=== PATIENT | male | born 1965 | race Caucasian/White ===

== ENCOUNTER 2019-08-06 16:26 | Emergency (ER) | payer OTHER, BC ==
[~2019-08-06] VITALS: Ht 195.6 cm; Wt 136.1 kg
[2019-08-06] MEDS ORDERED: ASPIRIN EC325 M1 PO (16:42)
[2019-08-06] MEDS ORDERED: SOTALOL 120 MG120 M1 PO (16:43)
[2019-08-06] MEDS ORDERED: METFORMIN HCL500 M3 PO (16:43)
[2019-08-06] MEDS ORDERED: FLOMAX0.4 MG PO (16:43)
[2019-08-06] MEDS ORDERED: AMBIEN 10 MG TA10 MG PO (16:43)
[2019-08-06] MEDS ORDERED: ZESTRIL20 MG PO (16:43)
[2019-08-06] MEDS ORDERED: DIAZEPAM 10 MG10 M1 PO (16:44)
[2019-08-06] MEDS ORDERED: NORCO 5-325 TA1 EAC1 PO (17:07)
[2019-08-06 17:56] VITALS: BP 144/72
== END 2019-08-06 17:56 | disposition home or self-care (01) ==
LOC: M.ERS 16:26
DX: M25.562 Pain in left knee (principal); I10 Essential (primary) hypertension; E11.9 Type 2 diabetes mellitus without complications; I48.91 Unspecified atrial fibrillation

== ENCOUNTER 2021-09-27 17:43 | Inpatient (IN) | payer BC ==
[~2021-09-27] VITALS: Ht 193 cm; Wt 140.6 kg
[2021-09-27] VITALS (7 sets, daily range): BP systolic 83–218; BP diastolic 37–148
[~2021-09-27 17:43] MED LIST: AMBIEN 10 MG TA10 MG PO; ASPIRIN EC325 M1 PO; DIAZEPAM 10 MG10 M1 PO; FLOMAX0.4 MG PO; METFORMIN HCL500 M3 PO; NORCO 5-325 TA1 EAC1 PO; SOTALOL 120 MG120 M1 PO; ZESTRIL20 MG PO
[2021-09-27 18:08] LABS: ABSOLUTE BASOPHILS 0.1 thou/uL (0.0-0.2); ABSOLUTE EOSINOPHILS 0.8 thou/uL (0.0-0.7); ABSOLUTE LYMPHOCYTES 2.1 thou/uL (0.8-5.3); ABSOLUTE MONOCYTES 0.5 thou/uL (0.0-1.2); ABSOLUTE NEUTROPHILS 6.8 thou/uL (1.6-8.1); BASOPHILS 1.1 %; EOSINOPHILS 7.4 %; HEMATOCRIT 48.6 % (42.0-52.0); HEMOGLOBIN 16.4 gm/dL (14.0-18.0); LYMPHOCYTES 20.7 %; MCH 26.9 pg (26.0-34.0); MCHC 33.7 g/dL (28.0-37.0); MCV 79.9 fL (80.0-100.0); MPV 8.9 fl. (7.2-11.1); NUCLEATED RBCS 0 /100WBC; PLATELET COUNT* 217 thou/uL (150-400); POLYS 65.8 %; RBC 6.09 mil/uL (4.50-6.00); WBC 10.3 thou/uL (4.0-11.0)
[2021-09-27 18:12] LABS: CALCIUM 8.6 mg/dL (8.5-10.1); POTASSIUM 3.9 mmol/L (3.5-5.1)
[2021-09-27 18:24] LABS: ALBUMIN 4.2 g/dL (3.4-5.0); TOTAL PROTEIN 8.4 g/dL (6.4-8.2)
[2021-09-27 19:11] LABS: BE -1.9 mmol/L (-2 to +3)
[2021-09-27 19:14] LABS: PCO2 53.7 mmHg (35.0-45.0); PO2 185.4 mmHg (75.0-100.0); pH 7.295 (7.340-7.450)
[2021-09-27 22:44] LABS: BE 0.4 mmol/L (-2 to +3); PCO2 38.4 mmHg (35.0-45.0); pH 7.425 (7.340-7.450)
[2021-09-27 22:48] LABS: PO2 147.7 mmHg (75.0-100.0)
[2021-09-28] VITALS (29 sets, daily range): BP systolic 89–130; BP diastolic 41–68
[2021-09-28 04:25] LABS: HEMATOCRIT 42.2 % (42.0-52.0); MCH 26.5 pg (26.0-34.0); MCHC 33.1 g/dL (28.0-37.0); MPV 8.6 fl. (7.2-11.1); NUCLEATED RBCS 1 /100WBC; PLATELET COUNT* 172 thou/uL (150-400); RBC 5.28 mil/uL (4.50-6.00); RDW-CV 16.1 % (10.5-14.5); WBC 9.2 thou/uL (4.0-11.0)
[2021-09-28 04:26] LABS: ALBUMIN 3.5 g/dL (3.4-5.0); CALCIUM 8.3 mg/dL (8.5-10.1); CREATININE 1.5 mg/dL (0.6-1.3); MAGNESIUM 2.2 mg/dL (1.8-2.4); POTASSIUM 3.6 mmol/L (3.5-5.1); TOTAL BILIRUBIN 0.9 mg/dL (<0.1-1.0); TOTAL PROTEIN 7.2 g/dL (6.4-8.2)
[2021-09-28 07:42] LABS: ABSOLUTE LYMPHOCYTES 0.7 thou/uL (0.8-5.3); ABSOLUTE MONOCYTES 0.1 thou/uL (0.0-1.2); ABSOLUTE NEUTROPHILS 8.4 thou/uL (1.6-8.1); PLATELET ESTIMATE ADEQUATE
[2021-09-28 08:39] LABS: BE 2.1 mmol/L (-2 to +3); PCO2 36.6 mmHg (35.0-45.0); PO2 102.4 mmHg (75.0-100.0); pH 7.463 (7.340-7.450)
--- NOTE | 2021-09-28 11:08 | EKG ---
[place] [address] ELECTROCARDIOGRAM REPORT Name: MARIELA DOUGHERTY Room: [address] IN M.R.#: [id number] Admission: 09/27/21 Attend Phys: Guillermo Guzman Discharge: Date of : 63 Date of Service: 09/27/21 1828 Report #: [id number] THIS REPORT FOR: //name// [facility] ED Test Date: 2021-09-27 Test Time: 18:28:07 Pat Name: MARIELA DOUGHERTY Department: Room: [facility] Gender: M Well Service Pump Equipment Operator: TERRY : 1965 Requested By: Alexi Cordero Order Number: [id number] MD: Ang Lezama Measurements Intervals [place] Rate: 69 P: 78 NC: 154 QRS: 25 QRSD: 104 T: 36 QT: 500 QTc: 536 Interpretive Statements Sinus rhythm Borderline low voltage, extremity leads Prolonged QT interval No previous ECG available for comparison Electronically Signed On 09-28-2021 11:08:30 LABORATORY IMMUNOLOGIST by Ang Lezama [email or web address] <ELECTRONICALLY SIGNED> By: Ang Lezama MD, [facility] 09/28/21 1108 1828 1828 Ang Lezama MD, [facility] /EPI
[2021-09-28 12:05] LABS: ALBUMIN 3.3 g/dL (3.4-5.0); CREATININE 1.8 mg/dL (0.6-1.3); POTASSIUM 3.4 mmol/L (3.5-5.1); TOTAL BILIRUBIN 0.9 mg/dL (<0.1-1.0); TOTAL PROTEIN 6.9 g/dL (6.4-8.2)
[2021-09-28 12:16] LABS: INFLUENZA A ANTIGEN Negative (Negative); INFLUENZA B ANTIGEN Negative (Negative)
[2021-09-28 12:24] LABS: APTT 24.8 Seconds (25.0-31.3); INR 1.1; PROTIME 10.8 Seconds (9.20-11.50)
[2021-09-28 13:47] LABS: ABSOLUTE LYMPHOCYTES 0.8 thou/uL (0.8-5.3); ABSOLUTE MONOCYTES 0.1 thou/uL (0.0-1.2); ABSOLUTE NEUTROPHILS 7.2 thou/uL (1.6-8.1); BASOPHILS 0.1 %; HEMOGLOBIN 13.7 gm/dL (14.0-18.0); LYMPHOCYTES 9.8 %; MCH 27.6 pg (26.0-34.0); MCHC 34.1 g/dL (28.0-37.0); MCV 80.9 fL (80.0-100.0); MONOCYTES 1.6 %; NUCLEATED RBCS 0 /100WBC; PLATELET COUNT* 188 thou/uL (150-400); POLYS 88.5 %; RBC 4.95 mil/uL (4.50-6.00); WBC 8.1 thou/uL (4.0-11.0)
[2021-09-28 13:47] LABS: LIPASE 163 U/L (73-393); TRIGLYCERIDE 120 mg/dL (<150)
--- NOTE | 2021-09-28 16:40 | 2DMMODE ---
[place] [address] 2 D/M-MODE ECHOCARDIOGRAM Name: DOUGHETRYMARIELA Paul Room: [address] IN .#: [id number] Admission: 09/27/21 Attend Phys: Guillermo Guzman Discharge: Date of : 63 Date of Service: 09/28/21 1639 Report #: [id number] THIS REPORT FOR: cc: Tarah Wooten Tammy RNP Holkins, John M. MD [facility] ~ APPROVED REPORT Study performed: 09/28/2021 15:14:06 EXAM: Comprehensive 2D, Doppler, and color-flow Echocardiogram Patient Location: In-Patient Room #: [facility] Status: routine BSA: 2.67 HR: 73 bpm BP: 101/44 mmHg Rhythm: NSR Other Information Study Quality: Good Indications Dyspnea 2D Dimensions IVSd: 13.80 (7-11mm) LVOT Diam: 24.46 (18-24mm) LVDd: 57.09 mm PWd: 11.97 (7-11mm) Ascending Ao: 41.33 (22-36mm) LVDs: 33.12 (25-40mm) Aortic Root: 43.36 mm Volumes Left Atrial Volume (Systole) LA ESV Index: 52.60 mL/m2 Aortic Valve AoV Peak Keegan.: 1.59 m/s AO Peak Gr.: 10.10 mmHg LVOT Max P.78 mmHg AO Mean Gr.: 5.67 mmHg LVOT Mean P.42 mmHg LVOT Max V: 1.48 m/s AO V2 VTI: 31.26 cm LVOT Mean V: 0.97 m/s MICHELLE (VTI): 4.67 cm2 LVOT V1 VTI: 31.08 [place] [address] 2 D/M-MODE ECHOCARDIOGRAM Name: MARIELA DOUGHERTY Room: [address]#: [id number] Admission: 09/27/21 Attend Phys: Guillermo Guzman Discharge: Date of : 63 Date of Service: 09/28/21 1639 Report #: [id number] Mitral Valve E/A Ratio: 1.96 MV Decel. Time: 232.06 ms MV E Max Keegan.: 0.84 m/s MV PHT: 67.30 ms MVA (PHT): 3.27 cm2 TDI E/Lateral E': 12.00 E/Medial E': 10.50 Medial E' Keegan.: 0.08 m/s Lateral E' Keegan.: 0.07 m/s Left Ventricle The left ventricle is normal size. There is normal LV segmental wall motion. Mild concentric left ventricular hypertrophy. Left ventricular systolic function is normal. The left ventricular ejection fraction is within the normal range. LVEF is 60-65%. Right Ventricle The right ventricle is normal size. The right ventricular systolic function is normal. Atria Left atrium is moderately dilated. The right atrium size is normal. Aortic Valve Mild aortic valve sclerosis. Moderate aortic regurgitation. There is no aortic valvular stenosis. Mitral Valve The mitral valve is normal in structure. There is no mitral valve regurgitation noted. No evidence of mitral valve stenosis. Tricuspid Valve The tricuspid valve is normal in structure. Trace tricuspid regurgitation. Unable to assess PA pressure. Pulmonic Valve The pulmonary valve is normal in structure. There is no pulmonic valvular regurgitation. Great Vessels The aortic root is normal in size. IVC is dilated and collapses <50% [place] [address] 2 D/M-MODE ECHOCARDIOGRAM Name: MARIELA DOUGHERTY Room: [address]#: [id number] Admission: 09/27/21 Attend Phys: Guillermo Guzman Discharge: Date of : 63 Date of Service: 09/28/21 1639 Report #: [id number] Pericardium There is no pericardial effusion. <Conclusion> The left ventricle is normal size. Mild concentric left ventricular hypertrophy. Left ventricular systolic function is normal. The left ventricular ejection fraction is within the normal range. LVEF is 60-65%. The right ventricle is normal size. Left atrium is moderately dilated. Mild aortic valve sclerosis. Moderate aortic regurgitation. There is no aortic valvular stenosis. The mitral valve is normal in structure. The tricuspid valve is normal in structure. IVC is dilated and collapses <50% with inspiration. There is no pericardial effusion. There is normal LV segmental wall motion. <ELECTRONICALLY SIGNED> By: Ang Lezama MD, FACC 09/28/21 1639 1639 1639 Ang Lezama MD, FACC /INF
[2021-09-28 17:33] LABS: ABSOLUTE BASOPHILS 0.1 thou/uL (0.0-0.2); ABSOLUTE LYMPHOCYTES 0.6 thou/uL (0.8-5.3); ABSOLUTE MONOCYTES 0.2 thou/uL (0.0-1.2); ABSOLUTE NEUTROPHILS 7.4 thou/uL (1.6-8.1); BASOPHILS 0.7 %; HEMATOCRIT 35.6 % (42.0-52.0); LYMPHOCYTES 7.1 %; MCH 27.4 pg (26.0-34.0); MCHC 33.8 g/dL (28.0-37.0); MCV 81.3 fL (80.0-100.0); MONOCYTES 2.4 %; MPV 8.5 fl. (7.2-11.1); NUCLEATED RBCS 0 /100WBC; PLATELET COUNT* 150 thou/uL (150-400); POLYS 89.8 %; RBC 4.39 mil/uL (4.50-6.00); RDW-CV 15.9 % (10.5-14.5); WBC 8.3 thou/uL (4.0-11.0)
[2021-09-28 17:43] LABS: CALCIUM 7.2 mg/dL (8.5-10.1); CREATININE 1.9 mg/dL (0.6-1.3); MAGNESIUM 1.9 mg/dL (1.8-2.4); POTASSIUM 3.7 mmol/L (3.5-5.1)
[2021-09-29] VITALS (47 sets, daily range): BP systolic 109–163; BP diastolic 46–80
[2021-09-29 03:56] LABS: ABSOLUTE LYMPHOCYTES 0.7 thou/uL (0.8-5.3); ABSOLUTE MONOCYTES 0.3 thou/uL (0.0-1.2); ABSOLUTE NEUTROPHILS 9.5 thou/uL (1.6-8.1); BASOPHILS 0.4 %; HEMATOCRIT 39.7 % (42.0-52.0); HEMOGLOBIN 13.2 gm/dL (14.0-18.0); LYMPHOCYTES 6.8 %; MCH 26.8 pg (26.0-34.0); MCHC 33.2 g/dL (28.0-37.0); MCV 80.6 fL (80.0-100.0); MONOCYTES 2.9 %; MPV 8.7 fl. (7.2-11.1); NUCLEATED RBCS 0 /100WBC; PLATELET COUNT* 167 thou/uL (150-400); POLYS 89.9 %; RBC 4.93 mil/uL (4.50-6.00); RDW-CV 16.3 % (10.5-14.5); WBC 10.5 thou/uL (4.0-11.0)
[2021-09-29 04:31] LABS: ALBUMIN 3.2 g/dL (3.4-5.0); CREATININE 2.4 mg/dL (0.6-1.3); MAGNESIUM 2.7 mg/dL (1.8-2.4); POTASSIUM 3.7 mmol/L (3.5-5.1); TOTAL BILIRUBIN 0.6 mg/dL (<0.1-1.0); TOTAL PROTEIN 6.6 g/dL (6.4-8.2)
[2021-09-29 04:37] LABS: PHOSPHORUS* 6.8 mg/dL (2.5-4.9)
[2021-09-29 17:47] LABS: CALCIUM 8.1 mg/dL (8.5-10.1); CREATININE 1.9 mg/dL (0.6-1.3); MAGNESIUM 2.7 mg/dL (1.8-2.4); POTASSIUM 3.8 mmol/L (3.5-5.1)
[2021-09-30] VITALS (22 sets, daily range): BP systolic 129–182; BP diastolic 59–91
[2021-09-30 05:40] LABS: ABSOLUTE LYMPHOCYTES 1.4 thou/uL (0.8-5.3); ABSOLUTE MONOCYTES 0.5 thou/uL (0.0-1.2); ABSOLUTE NEUTROPHILS 8.3 thou/uL (1.6-8.1); BASOPHILS 0.2 %; HEMATOCRIT 39.4 % (42.0-52.0); HEMOGLOBIN 13.2 gm/dL (14.0-18.0); LYMPHOCYTES 13.4 %; MCH 27.1 pg (26.0-34.0); MCHC 33.4 g/dL (28.0-37.0); MCV 81.1 fL (80.0-100.0); MONOCYTES 4.8 %; MPV 8.7 fl. (7.2-11.1); NUCLEATED RBCS 0 /100WBC; PLATELET COUNT* 147 thou/uL (150-400); POLYS 81.6 %; RBC 4.86 mil/uL (4.50-6.00); RDW-CV 15.7 % (10.5-14.5); WBC 10.2 thou/uL (4.0-11.0)
[2021-09-30 06:17] LABS: ALBUMIN 3.4 g/dL (3.4-5.0); CALCIUM 7.9 mg/dL (8.5-10.1); CREATININE 1.4 mg/dL (0.6-1.3); MAGNESIUM 2.6 mg/dL (1.8-2.4); POTASSIUM 3.4 mmol/L (3.5-5.1); TOTAL BILIRUBIN 0.7 mg/dL (<0.1-1.0); TOTAL PROTEIN 6.7 g/dL (6.4-8.2)
[2021-09-30 08:28] LABS: BE -0.6 mmol/L (-2 to +3); PCO2 44.4 mmHg (35.0-45.0); PO2 77.5 mmHg (75.0-100.0); pH 7.367 (7.340-7.450)
[2021-09-30 08:33] LABS: URINE BILIRUBIN NEGATIVE (Negative); URINE BLOOD NEGATIVE (Negative); URINE CLARITY CLEAR; URINE COLOR YELLOW; URINE GLUCOSE-RANDOM NEGATIVE (Negative); URINE KETONES NEGATIVE (Negative); URINE LEUKOCYTES NEGATIVE (Negative); URINE NITRITE NEGATIVE (Negative); URINE PROTEIN NEGATIVE (Negative); URINE SPECIFIC GRAVITY 1.025 (1.005-1.030); URINE UROBILINOGEN 0.2 E.U./dl (0.2-1.0)
[2021-09-30 13:29] LABS: CALCIUM 6.8 mg/dL (8.5-10.1); CREATININE 1.5 mg/dL (0.6-1.3); MAGNESIUM 2.4 mg/dL (1.8-2.4); POTASSIUM 3.3 mmol/L (3.5-5.1)
--- NOTE | 2021-09-30 13:37 | CON ---
[address] [address] CONSULTATION Name: MARIELA DOUGHERTY Room: [address] IN M.R.#: [id number] Admission: 09/27/21 Attend Phys: Ashok Wilkins Discharge: Date of : 63 Report #: [id number] THIS REPORT FOR: cc: Tarah Wooten Tammy RNP Pervez, Adeel MD ~ DATE OF CONSULTATION: 09/28/2021 REQUESTING PHYSICIAN: Guillermo Guzman DO INDICATION FOR CONSULTATION: Acute hypoxemic respiratory failure. HISTORY OF PRESENT ILLNESS: This is a 56-year-old gentleman, past medical history includes a history of cardiac disease. I do not have full details available. The patient does have a history of atrial fibrillation, has had ablation performed at home and takes sotalol at home. He is reported to be a lifetime nonsmoker for tobacco, although he has used marijuana. The patient is vaccinated with 3 doses of an mRNA COVID-19 vaccine. The patient is reported by his son to be sick for the last 1 week having respiratory complaints, was short of breath, was coughing, was bringing up small amounts of sputum, had a nasal discharge, had a sore throat. Unclear to me as to whether the patient had a fever or not. The patient subsequently continued to decline and went into respiratory distress yesterday, requiring emergent endotracheal intubation. Chest x-ray done yesterday. It does not show acute pulmonary edema. There is also a CTA chest performed yesterday, it in addition to the above shows bilateral infiltrates. There is no pulmonary emboli. The patient's initial creatinine was normal at 1.0. It has been gradually going up. I repeated a set of labs now, which now shows a creatinine of 1.8. We have repeated a chest x-ray this morning. Now, it do still see significant bilateral lower lobe infiltrates, but I do not see significant pulmonary vascular congestion, which is change since yesterday. Meanwhile, the patient is stable on the ventilator. We are down to 45% FiO2 and 10 of PEEP. The patient is on the ventilator, unable to provide a further history or review of systems. PAST MEDICAL HISTORY: Atrial fibrillation, status post ablation, takes sotalol at home, I do not have a measure of his left ventricular ejection fraction available at this time; hypertension; diabetes. SOCIAL HISTORY: Use of marijuana, lifetime [place] [address] CONSULTATION Name: MARIELA DOUGHERTY Room: [address]#: [id number] Admission: 09/27/21 Attend Phys: Ashok Wilkins Discharge: Date of : 63 Report #: [id number] alcohol intake, unable to quantify. No known history of illegal drug use. CURRENT MEDICATIONS: List in [employer] reviewed. HOME MEDICATIONS: List in [employer] reviewed. FAMILY HISTORY: No pertinent family history. PHYSICAL EXAMINATION: GENERAL: He is sedated with Versed, fentanyl as well as propofol. His ventilator settings are as described above. VITAL SIGNS: In the records reviewed. HEENT: Head is normocephalic and atraumatic. Endotracheal tube is in good position. NECK: Does not show raised JVP, asymmetry, mass or lymph nodes. CHEST: Symmetrical expansion on inspection and palpation. On auscultation, breath sounds are bilaterally equal. There are no added sounds. HEART: Regular. There is no murmur. ABDOMEN: Soft and nontender. EXTREMITIES: Lower extremities, trace edema, no calf tenderness. SKIN: Dry and intact. NEUROLOGIC: Moves all extremities to pain. No focal deficit identified. LABORATORY DATA: The patient's lab work is in [facility] reviewed. Arterial blood gases also in [facility] reviewed. Chest x-rays and CTA chest as described above. ASSESSMENT AND PLAN: 1. Acute hypoxemic respiratory failure secondary to pneumonia and increase in pulmonary vascular congestion. The first chest x-ray does show pulmonary edema; however, it does not appear to me that this is the entire etiology of the patient's acute respiratory failure. He does have fairly significant infiltrates as well and appears to have pneumonia. The etiology of his pneumonia is to be determined at this time. Currently, we are ventilating and oxygenating adequately. I will obtain propofol related labs and then assess his sedation further, decrease FiO2 as tolerated, for now I am keeping current PEEP. We will continue to follow. His sed rate ____. 2. Pulmonary infiltrates/pneumonia. Etiology is to be determined. X-rays are more consistent with bacterial etiology of pneumonia. Cultures were sent. Pending cultures, broad-spectrum antibiotics are ordered including linezolid, Zosyn as well as doxycycline. Note, the doxycycline is for atypicals as the patient has a history of sotalol use. I will discontinue linezolid in case the cultures and nasal swab for MRSA come back negative. Interestingly, however, his WBC count is normal. Viral markers are also pending. COVID-19 antigen was [address] [address] CONSULTATION Name: MARIELA DOUGHERTY Room: [address] IN [place]#: [id number] Admission: 09/27/21 Attend Phys: Ashok Wilkins Discharge: Date of : 63 Report #: [id number] negative. PCR is pending. 3. Acute pulmonary edema/acute renal failure. The second chest x-ray looks much better. We are currently ventilating and oxygenating adequately. Therefore, I decided to cautiously go ahead and bolus him with 500 mL of Ringer's lactate and then repeat labs. We will also repeat his potassium. We would obtain an echo and we will do a renal ultrasound. 4. Possible bronchospasm. Continue DuoNeb. I cut back on Solu-Medrol dose. 5. History of atrial fibrillation, status post ablation. See discussion above. 6. Gastrointestinal prophylaxis. There is a small amount of blood in the OG likely secondary to OG insertion trauma. Order Protonix b.i.d. 7. Deep vein thrombosis prophylaxis. Despite the above, we will give him prophylactic dose Lovenox. 8. Nutrition. Considering the presence of small amount of blood in the OG, I decided to hold off on tube feeds today as well as Lactinex, but I will consider the same tomorrow. 9. The patient is critically ill at this time. Total time spent providing critical care to this patient today exceeds 45 minutes. <ELECTRONICALLY SIGNED> By: Russell Sierra MD 09/30/21 1337 1227 1757Ajerman Sierra MD /nt
[2021-09-30 21:50] LABS: CALCIUM 7.3 mg/dL (8.5-10.1); CREATININE 1.2 mg/dL (0.6-1.3)
[2021-10-01] VITALS (25 sets, daily range): BP systolic 130–193; BP diastolic 65–90
[2021-10-01 04:42] LABS: ABSOLUTE EOSINOPHILS 0.1 thou/uL (0.0-0.7); ABSOLUTE LYMPHOCYTES 1.3 thou/uL (0.8-5.3); ABSOLUTE MONOCYTES 0.5 thou/uL (0.0-1.2); ABSOLUTE NEUTROPHILS 5.2 thou/uL (1.6-8.1); BASOPHILS 0.6 %; EOSINOPHILS 1.1 %; HEMATOCRIT 39.9 % (42.0-52.0); HEMOGLOBIN 13.3 gm/dL (14.0-18.0); LYMPHOCYTES 18.1 %; MCHC 33.3 g/dL (28.0-37.0); MONOCYTES 7.3 %; MPV 8.3 fl. (7.2-11.1); NUCLEATED RBCS 0 /100WBC; PLATELET COUNT* 141 thou/uL (150-400); POLYS 72.9 %; RBC 4.93 mil/uL (4.50-6.00); WBC 7.2 thou/uL (4.0-11.0)
[2021-10-01 05:00] LABS: PHOSPHORUS* 2.5 mg/dL (2.5-4.9)
[2021-10-01 05:47] LABS: ALBUMIN 3.5 g/dL (3.4-5.0); CALCIUM 8.1 mg/dL (8.5-10.1); CREATININE 1.1 mg/dL (0.6-1.3); MAGNESIUM 2.2 mg/dL (1.8-2.4); POTASSIUM 3.8 mmol/L (3.5-5.1); TOTAL BILIRUBIN 1.3 mg/dL (<0.1-1.0); TOTAL PROTEIN 7.2 g/dL (6.4-8.2)
[2021-10-01 11:43] LABS: URINE BILIRUBIN NEGATIVE (Negative); URINE BLOOD 3+ (Negative); URINE CLARITY SL CLOUDY; URINE COLOR RED; URINE GLUCOSE-RANDOM NEGATIVE (Negative); URINE KETONES TRACE (Negative); URINE LEUKOCYTES 1+ (Negative); URINE NITRITE POSITIVE (Negative); URINE PROTEIN 2+ (Negative)
[2021-10-01 11:44] LABS: CASTS None Seen /LPF (None Seen); CRYSTALS None Seen /LPF (None Seen); SQUAMOUS NONE SEEN /LPF (0-3); URINE RBC >20 Many /HPF (0-2); URINE WBC 6-15 Few /HPF (0-5)
[2021-10-01 14:22] LABS: MAGNESIUM 2.1 mg/dL (1.8-2.4); POTASSIUM 3.4 mmol/L (3.5-5.1)
[2021-10-02] VITALS (15 sets, daily range): BP systolic 135–188; BP diastolic 60–96
[2021-10-02 05:03] LABS: ALBUMIN 3.3 g/dL (3.4-5.0); CALCIUM 8.2 mg/dL (8.5-10.1); CREATININE 0.8 mg/dL (0.6-1.3); MAGNESIUM 2.3 mg/dL (1.8-2.4); POTASSIUM 3.4 mmol/L (3.5-5.1); TOTAL BILIRUBIN 1.5 mg/dL (<0.1-1.0); TOTAL PROTEIN 7.2 g/dL (6.4-8.2)
[2021-10-03 00:32] VITALS: BP 181/79
--- NOTE | 2021-10-03 10:00 | EKG ---
[place] [address] ELECTROCARDIOGRAM REPORT Name: MARIELA DOUGHERTY Room: [address] IN ..#: [id number] Admission: 09/27/21 Attend Phys: Guillermo Guzman Discharge: Date of : 63 Date of Service: 10/01/21 1320 Report #: [id number] THIS REPORT FOR: //name// [facility] Test Date: 2021-10-01 Test Time: 13:20:14 Pat Name: MARIELA DOUGHERTY Department: Room: [facility] Gender: M Pourer Buggy Ladle: EMANUEL : 1965 Requested By: Guillermo Guzman Order Number: [id number] Reading MD: Edwin Dwyer Measurements Intervals [place] Rate: 118 P: ID: QRS: -11 QRSD: 107 T: 100 QT: 359 QTc: 504 Interpretive Statements Atrial fibrillation Borderline repolarization abnormality Prolonged QT interval Baseline wander in lead(s) II,III,aVL,aVF,V6 Compared to ECG 09/27/2021 18:28:07 Sinus rhythm no longer present Electronically Signed On 10-03-2021 9:59:58 MANAGER INSPECTION by Edwin Dwyer [email or web address] <ELECTRONICALLY SIGNED> By: Edwin Dwyer MD, FAC 10/03/21 0959 1320 1320 Edwin Dwyer MD, FAC /EPI
--- NOTE | 2021-10-03 10:00 | EKG ---
[place] [address] ELECTROCARDIOGRAM REPORT Name: MARIELA DOUGHERTY Room: [address] IN [facility]#: [id number] Admission: 09/27/21 Attend Phys: Guillermo Guzman Discharge: Date of : 63 Date of Service: 10/01/21 1322 Report #: [id number] THIS REPORT FOR: //name// [facility] Test Date: 2021-10-01 Test Time: 13:22:48 Pat Name: MARIELA DOUGHERTY Department: Room: [facility] Gender: M Dot Net Developer: : 1965 Requested By: Jamila Causey Order Number: [id number] Paulie MD: Edwin Dwyer Measurements Intervals [place] Rate: 115 P: [place]: QRS: -9 QRSD: 106 T: 148 QT: 359 QTc: 497 Interpretive Statements Atrial fibrillation Borderline repolarization abnormality Borderline prolonged QT interval Compared to ECG 10/01/2021 13:20:14 No significant changes Electronically Signed On 10-03-2021 10:00:15 CRUSHER LOADER OPERATOR by Edwin Dwyer [email or web address] <ELECTRONICALLY SIGNED> By: Edwin Dwyer MD, FAC 10/03/21 1000 1322 1322 Edwin Dwyer MD, [facility] /EPI
--- NOTE | 2021-10-03 10:46 | EKG ---
[place] [address] ELECTROCARDIOGRAM REPORT Name: MARIELA DOUGHERTY Room: [address] ADM IN .R.#: [id number] Admission: 09/27/21 Attend Phys: Guillermo Guzman Discharge: Date of : 63 Date of Service: 10/02/21 0829 Report #: [id number] THIS REPORT FOR: //name// [facility] Test Date: 2021-10-02 Test Time: 08:29:08 Pat Name: MARIELA DOUGHERTY Department: Room: [address] Gender: M Linotyper: EMANUEL : 1965 Requested By: Jamila Causey Order Number: [id number] Reading MD: Edwin Dwyer Measurements Intervals [place] Rate: 104 P: CT: QRS: -18 QRSD: 104 T: 91 QT: 373 QTc: 491 Interpretive Statements Atrial fibrillation Ventricular premature complex Borderline left axis deviation Borderline repolarization abnormality Borderline prolonged QT interval Baseline wander in lead(s) II,aVR,aVF,V3,V5,V6 Compared to ECG 10/01/2021 13:22:48 Ventricular premature complex(es) now present rate has slowed Electronically Signed On 10-03-2021 10:46:20 FORMULATION TECHNICIAN by Edwin Dwyer [email or web address] <ELECTRONICALLY SIGNED> By: Edwin Dwyer MD, [facility] 10/03/21 1046 8 8 Edwin Dwyer MD, [facility] /EPI
[2021-10-03 11:49] VITALS: BP 149/81
--- NOTE | 2021-10-03 13:15 | EKG ---
[place] [address] ELECTROCARDIOGRAM REPORT Name: MARIELA DOUGHERTY Room: [address] ADM IN .R.#: [id number] Admission: 09/27/21 Attend Phys: Guillermo Guzman Discharge: Date of : 63 Date of Service: 10/03/21 1009 Report #: [id number] THIS REPORT FOR: //name// [facility] Test Date: 2021-10-03 Test Time: 10:09:14 Pat Name: MARIELA DOUGHERTY Department: Room: [address] Gender: M Traffic Supervisor: CAMI : 1965 Requested By: Isaac Burgess Order Number: [id number] Paulie MD: Edwin Dwyer Measurements Intervals [place] Rate: 102 P: [place]: QRS: -17 QRSD: 98 T: 48 QT: 389 QTc: 507 Interpretive Statements Atrial fibrillation with PVC's Borderline left axis deviation Prolonged QT interval Compared to ECG 10/02/2021 08:29:08 no change Electronically Signed On 10-03-2021 13:14:58 ELECTROMEDICAL EQUIPMENT TECHNICIAN by Edwin Dwyer [email or web address] <ELECTRONICALLY SIGNED> By: Edwin Dwyer MD, FAC 10/03/21 1314 1009 1009 Edwin Dwyer MD, [facility] /EPI
[2021-10-03 15:11] LABS: ABSOLUTE BASOPHILS 0.1 thou/uL (0.0-0.2); ABSOLUTE EOSINOPHILS 0.8 thou/uL (0.0-0.7); ABSOLUTE LYMPHOCYTES 1.4 thou/uL (0.8-5.3); ABSOLUTE MONOCYTES 0.7 thou/uL (0.0-1.2); ABSOLUTE NEUTROPHILS 8.5 thou/uL (1.6-8.1); EOSINOPHILS 7.2 %; HEMATOCRIT 44.7 % (42.0-52.0); LYMPHOCYTES 12.3 %; MCHC 33.6 g/dL (28.0-37.0); MCV 80.4 fL (80.0-100.0); MONOCYTES 5.7 %; MPV 8.3 fl. (7.2-11.1); NUCLEATED RBCS 0 /100WBC; PLATELET COUNT* 185 thou/uL (150-400); POLYS 73.8 %; RBC 5.56 mil/uL (4.50-6.00); RDW-CV 15.7 % (10.5-14.5); WBC 11.6 thou/uL (4.0-11.0)
[2021-10-03 15:25] LABS: ALBUMIN 3.4 g/dL (3.4-5.0); CALCIUM 8.5 mg/dL (8.5-10.1); MAGNESIUM 2.2 mg/dL (1.8-2.4); POTASSIUM 3.5 mmol/L (3.5-5.1); TOTAL PROTEIN 7.2 g/dL (6.4-8.2)
[2021-10-03 16:00] VITALS: BP 156/86
[2021-10-03 19:45] VITALS: BP 143/68
[2021-10-04] VITALS (16 sets, daily range): BP systolic 127–164; BP diastolic 63–82
[2021-10-04] MEDS ORDERED: ELIQUIS5 MG PO (13:54)
[2021-10-04] MEDS ORDERED: CARDIZEM60 MG PO (13:54)
[2021-10-04] MEDS ORDERED: CEFDINIR300 MG PO (13:54)
[2021-10-04] MEDS ORDERED: SORINE 80 MG TA80 M1 PO (13:54)
--- NOTE | 2021-10-04 15:50 | EKG ---
[place] [address] ELECTROCARDIOGRAM REPORT Name: MARIELA DOUGHERTY Room: [address] ADM IN M.R.#: [id number] Admission: 09/27/21 Attend Phys: Guillermo Guzman Discharge: Date of : 63 Date of Service: 10/04/21 0855 Report #: [id number] THIS REPORT FOR: //name// [facility] Test Date: 2021-10-04 Test Time: 08:55:54 Pat Name: MARIELA DOUGHERTY Department: Room: [address] Gender: M Surgical Dressing Maker: JOY : 1965 Requested By: Isaac Burgess Order Number: [id number] Paulie MD: Edwin Dwyer Measurements Intervals [place] Rate: 65 P: [place]: QRS: -17 QRSD: 106 T: 194 QT: 542 QTc: 564 Interpretive Statements Atrial fibrillation Ventricular premature complex Borderline left axis deviation Nonspecific T abnormalities, diffuse leads Prolonged QT interval Compared to ECG 10/03/2021 10:09:14 rate has slowed Electronically Signed On 10-04-2021 15:50:23 COUNTY TAX ASSESSOR by Edwin Dwyer [email or web address] <ELECTRONICALLY SIGNED> By: Edwin Dwyer MD, [facility] 10/04/21 1550 0855 0855 Edwin Dwyer MD, [facility] /EPI
--- NOTE | 2021-10-05 08:39 | CARD ---
[address] [address] CARDIAC CATH REPORT Name: MARIELA DOUGHERTY Room: [address]#: [id number] Admission: 09/27/21 Attend Phys: Ashok Wilkins Discharge: 10/04/21 Date of : 63 Report #: [id number] THIS REPORT FOR: cc: Tarah Wooten Tammy RNP Liston, Michael J. MD [facility] ~ DATE OF SERVICE: 10/04/2021 CARDIAC PROCEDURE INDICATION: Persistent atrial fibrillation. PROCEDURE: DC cardioversion. DESCRIPTION OF PROCEDURE: After informed consent was obtained, the patient was given 6 mg of intravenous Versed and 150 mg of intravenous fentanyl. Once the patient was adequately sedated, he received a biphasic shock of 300 joules, which failed to convert him from atrial fibrillation. Assuring adequate sedation, a second biphasic shock of 360 joules was delivered, converting him to normal sinus rhythm for approximately 2 minutes. Assuring adequate sedation a third time, the patient was cardioverted with a single biphasic shock of 360 joules, this time converting to sinus rhythm. The patient tolerated the procedure well without complication. IMPRESSION: 1. Persistent atrial fibrillation. 2. Successful direct-current cardioversion to normal sinus rhythm. <ELECTRONICALLY SIGNED> By: Isaac Burgess MD, [facility] 10/05/21 [address] [place], [place] [address]ze Burgess MD, ANGEL LUISC /nt
--- NOTE | 2021-10-05 13:41 | CON ---
[address] [address] CONSULTATION Name: MARIELA DOUGHERTY Room: [address] IN M.R.#: [id number] Admission: 09/27/21 Attend Phys: Ashok Wilkins Discharge: 10/04/21 Date of : 63 Report #: [id number] THIS REPORT FOR: cc: Tarah Wooten Tammy RNP Khosla, Parveen K. MD ~ DATE OF CONSULTATION: 10/03/2021 HISTORY OF PRESENT ILLNESS: This is a 56-year-old male patient who was evaluated by me for confusion. The patient does not believe he is confused anymore. is there, she confirmed the same thing, but she indicated that he was confused yesterday and day before. After that, they have readjusted his psychotropic medication and he is not confused. Record indicates he did get some Haldol here. Record also indicates that he had a CT scan of the head done on the that showed mainly the chronic white matter ischemic changes. REVIEW OF SYSTEMS: A 14-point review of system was carried out. This patient has a pretty involved history. He was admitted with short of breath. He was not saturating well when he came to Emergency Room. He has a history of atrial fibrillation and he is on anticoagulation. He has a history of diabetes, hypertension, cardiac ablation. His biggest problem appeared to be urological problem. He says he is getting stronger and he was able to walk around some today. This was his relevant 14-point review of system, looks like he has a pretty significant multisystem problem. Multiple oracle financials consultant is following this patient during this admission. PAST MEDICAL HISTORY: Negative for any stroke the best I can tell. FAMILY HISTORY: Unremarkable. SOCIAL HISTORY: He is and his provided some of the history. He does not smoke and he says he drinks socially. PHYSICAL EXAMINATION: NEUROLOGIC: He was alert, responsive. He can able to tell me what month it is, what date it is, who the president is, who was the president before. His speech looks intact. Cranial nerve examination II-XII looks unremarkable. He did pretty well with the position sense. He moves both sides symmetrically. His tone looks symmetrical. Reflexes appeared to be somewhat diminished, but he is a diabetic. There is no cerebellar sign. I could not look at the patient's fundus. He is a well-built individual. He does not have any dysmorphic features of eyes, ears and face. His vision and hearing looks adequate. He does not appear to be in marked respiratory distress, but he has some respiratory distress. His biggest problem was urological. VITAL SIGNS: His blood pressure is 156/86, respirations 20, pulse is 81, [facility] [address] [place] [address] CONSULTATION Name: MARIELA DOUGHERTY Room: [address] IN [facility].#: [id number] Admission: 09/27/21 Attend Phys: Ashok Wilkins Discharge: 10/04/21 Date of : 63 Report #: [id number] temperature is 98.8. LABORATORY DATA: White count is somewhat high at 11.6 and his last TSH is normal. IMPRESSION AND PLAN: Confusion, which appeared to have resolved. I think that is because of the systemic problems. I will discuss the patient with hospitalist tomorrow. If he is back to baseline, we can just observe him and that is what he wants to do and his wants to do, but if more symptoms occur, then we can consider doing further workup like MRI and EEG. Thank you very much for this referral. <ELECTRONICALLY SIGNED> By: Maximiliano Leong MD 10/05/21 1341 1820 18Maximiliano Leong MD /nt
== END 2021-10-04 20:15 | disposition home or self-care (01) | DRG 208 ==
LOC: M.ERS 17:43 → M.ICU 18:23 → M.2W 18:23 → M.TBA-ER 18:23 → M.ICU 21:30 → M.2W 10-02 16:10
PROVIDERS: Family Medicine; Internal Medicine Critical Care Medicine; Internal Medicine Nephrology; Registered Nurse; ADMIT Internal Medicine; ATTEND Internal Medicine
PROC: 0BH17EZ Insertion of Endotracheal Airway into Trachea, Via Natural or Artificial Opening (ICD-10-PCS; principal; 2021-09-27)
PROC: 5A1945Z Respiratory Ventilation, 24-96 Consecutive Hours (ICD-10-PCS; principal; 2021-09-27)
PROC: 02HV33Z Insertion of Infusion Device into Superior Vena Cava, Percutaneous Approach (ICD-10-PCS; 2021-09-28)
PROC: 5A09357 Assistance with Respiratory Ventilation, Less than 24 Consecutive Hours, Continuous Positive Airway Pressure (ICD-10-PCS; 2021-10-01)
PROC: 5A0935A Assistance with Respiratory Ventilation, Less than 24 Consecutive Hours, High Flow/Velocity Cannula (ICD-10-PCS; 2021-10-01)
PROC: 5A09357 Assistance with Respiratory Ventilation, Less than 24 Consecutive Hours, Continuous Positive Airway Pressure (ICD-10-PCS; 2021-10-04)
PROC: 5A2204Z Restoration of Cardiac Rhythm, Single (ICD-10-PCS; 2021-10-04)
DX: J96.01 Acute respiratory failure with hypoxia (principal); J18.9 Pneumonia, unspecified organism; I50.33 Acute on chronic diastolic (congestive) heart failure; I48.19 Other persistent atrial fibrillation; I16.1 Hypertensive emergency; N17.9 Acute kidney failure, unspecified; E44.1 Mild protein-calorie malnutrition; N30.00 Acute cystitis without hematuria; R41.0 Disorientation, unspecified; E87.6 Hypokalemia; R31.0 Gross hematuria; I11.0 Hypertensive heart disease with heart failure; G47.33 Obstructive sleep apnea (adult) (pediatric); E11.9 Type 2 diabetes mellitus without complications; N28.1 Cyst of kidney, acquired; N40.0 Benign prostatic hyperplasia without lower urinary tract symptoms; E66.9 Obesity, unspecified; Z20.822 Contact with and (suspected) exposure to COVID-19; Z79.899 Other long term (current) drug therapy; Z79.82 Long term (current) use of aspirin; Z79.84 Long term (current) use of oral hypoglycemic drugs; Z68.37 Body mass index [BMI] 37.0-37.9, adult; Z79.01 Long term (current) use of anticoagulants; Z99.81 Dependence on supplemental oxygen